=== PATIENT | female | born 2005 | race Hispanic/Latino ===

== ENCOUNTER 2025-01-05 05:01 | Emergency (ER) | payer BC ==
[2025-01-05] MEDS ORDERED: Ketorolac Tromethamine 30 MG (1 mL) VIAL ONE (05:26)
[2025-01-05] MEDS ORDERED: Acetaminophen 500 MG TAB ONE (05:26)
[2025-01-05] MEDS ORDERED: Ondansetron PF 4 MG/2 ML Vial ONE (05:26)
[2025-01-05 06:24] LABS: #Basophils 0.03 10x3/uL (0.0-0.2); #Eosinophils Less than 0.03 10x3/uL (0.0-0.5); #Monocytes 0.33 10x3/uL (0.0-1.1); #Neutrophils 3.85 10x3/uL (1.5-8.4); %Basophils 0.6 % (0.0-2.0); %Eosinophils 0.4 % (0.0-6.0); %Lymphocytes 17.0 % (18.0-47.0); %Monocytes 6.5 % (0.0-10.0); %Neutrophils 75.3 % (40.0-75.0); Hematocrit 35.7 % (34.9-44.5); Hemoglobin 11.5 g/dL (12.0-15.5); Mean Corpuscular Hemoglobin 25.2 pg (27.0-33.0); Mean Corpuscular Volume 78.3 fL (81.6-98.3); Platelet Count 239 10x3/uL (150-450); Red Blood Cell (RBC) Count 4.56 10x6/uL (3.90-5.03); White Blood Cell (WBC) Count 5.11 10x3/uL (3.5-10.5)
[2025-01-05 06:32] LABS: BHCG - Serum Negative (NEGATIVE); Pregs Control Background? CLEAR/WHITE (CLR/WHITE); Pregs Control Bar Appear? YES (CONTROL BAR)
[2025-01-05 06:40] LABS: ALT (SGPT) 43 U/L (Less than 34); AST (SGOT) 28 U/L (11-34); Albumin 3.5 g/dL (3.1-4.5); Alkaline Phosphatase 65 U/L (40-100); Anion Gap 15 mmol/L (10-20); BUN (Urea Nitrogen) 7 mg/dL (7.0-18.7); Bilirubin, Total 0.2 mg/dL (0.3-1.2); Calc. Creatinine Clearance 0 mL/min (70-130); Calcium 8.1 mg/dL (7.8-10.44); Carbon Dioxide 15 mmol/L (22-29); Chloride 110 mmol/L (98-107); Globulin 3.4 g/dL (2.4-3.5); Glucose 94 mg/dL (70-105); Lipase 22 U/L (8-78); Potassium 3.4 mmol/L (3.5-5.1); Sodium 137 mmol/L (136-145)
[2025-01-05 07:42] LABS: Glucose, Urine (Dipstick) Normal (Negative); Leukocyte 25 (Negative); Protein, Urine (Dipstick) 30 mg/dl (Neg-Trace); Specific Gravity, Urine 1.015 (1.005-1.030)
[2025-01-05 07:57] LABS: CAUTI Indications for Culture Dysuria,urgency,freq; RBC/HPF 0-3 HPF (0-3)
[2025-01-05 07:58] LABS: Bacteria/HPF 1+ HPF (None Seen); Urine Culture Reflex No No
== END 2025-01-05 08:45 | disposition home or self-care (01) ==
LOC: CSHERS 05:01
DX: K52.9 Noninfective gastroenteritis and colitis, unspecified (principal)
CPT/HCPCS: 36415; 80053; 81001; 83605; 83690; 84703; 85025; 87426; 96361; 96374; 96375; J1885; J2405